=== PATIENT | male | born 1940 | race Caucasian/White ===

== ENCOUNTER 2023-01-22 11:25 | Emergency (ER) | payer MEDICARE, SELFPAY ==
[2023-01-22 11:43] VITALS: BP 141/84; PULSE 84; RESP 22; TEMP 36.2; O2SAT 96; BMI 32.5
--- NOTE | 2023-01-22 11:53 | CRLHL7_ITS ---
For Patients: As a result of the Cures Act, medical imaging exams and procedure reports are released immediately into your electronic medical record. You may view this report before your referring provider. If you have questions, please contact your health care provider. INDICATION: Cough. COMPARISON: Chest x-ray dated 28 December 2021. FINDINGS: PA and lateral chest x-rays show a normal cardiac silhouette. The lungs show no focal pulmonary opacities. Sharp pleural margins. No pneumothorax. IMPRESSION: No evidence of acute pulmonary abnormalities. Dictated by Albert Estrada MD @ 01/22/2023 12:50:18 PM Dictated by: Albert Estrada MD @ 01/22/2023 12:50:28 (Electronically Signed)
--- NOTE | 2023-01-22 12:12 | ED_ITS ---
HPI - General Adult General Chief complaint: Cough Stated complaint: congestion, headache, cough Time Seen by Provider: 01/22/23 11:48 Source: patient Mode of arrival: ambulatory Limitations: no limitations History of Present Illness HPI narrative: 82-year-old male coming in today complaining of not feeling well since Tuesday, so today going on day 5. He complains of a cough and decreased appetite. had similar symptoms last week and she is improved. He states that he has no chest pain, cough is not productive, no fevers, no abdominal discomfort or headache, no skin rashes. He denies weakness. He is more fatigued than usual. He denies tobacco use, history of asthma or COPD. Related Data Home Medications Medication Instructions Recorded Confirmed allopurinol 100 mg tablet 200 mg PO DAILY 07/21/22 09/29/22 omeprazole 20 mg tablet,delayed mg PO BID 07/21/22 09/29/22 release Previous Rx's Medication Instructions Recorded celecoxib 200 mg capsule 200 mg PO QDAY #10 caps 07/21/22 colchicine 0.6 mg tablet 0.6 mg PO QDAY #6 tabs 07/21/22 warfarin 4 mg tablet 4 mg PO QDAY #100 tabs 07/21/22 alprazolam 0.5 mg tablet 0.5 mg PO .Bedtime as needed PRN 09/30/22 sleep #60 tabs citalopram 20 mg tablet See Rx Instructions .Route 11/12/22 .COMPLEX #90 tabs diltiazem HCl 120 mg See Rx Instructions .Route 11/12/22 capsule,extended release 24 hr .COMPLEX #90 caps lisinopril 20 mg tablet See Rx Instructions .Route 11/12/22 .COMPLEX #90 tabs pravastatin 40 mg tablet See Rx Instructions .Route 12/26/22 .COMPLEX #90 tabs tadalafil 5 mg tablet See Rx Instructions .Route 01/21/23 .COMPLEX #90 tabs Allergies Allergy/AdvReac Type Severity Reaction Status Date / Time No Known Allergies Allergy Unknown Unknown Uncoded 09/29/22 09:43 Review of Systems Status of ROS: Reports: 10 or more systems reviewed and unremarkable except as noted in History and below [facility] Medical History Basal cell carcinoma of skin (01/19/10) Phlebitis of superficial vein Surgical History History of blepharoplasty Status post cataract extraction Status post cholecystectomy Status post repair of hydrocele Social History Smoking Status: Never smoker Do you use any of these nicotine containing products: None Second hand tobacco smoke exposure: No How often do you have a drink containing alcohol: never AUDIT-C Alcohol total score: 0 Non-prescribed substance use: denies use Exam Narrative: Exam Narrative: Well-nourished well-developed patient in no acute distress. Alert and oriented. Answers questions appropriately. Mood and affect are appropriate. Thoughts are goal oriented and rational. No tangential or magical thinking noted. Patient speaks in full sentences without needing to catch his breath. He does sound slightly congested. HEENT: Normocephalic atraumatic. Pupils are equally round reactive to light. Extraocular muscles are intact. Conjunctivae are moist without any icterus noted. Moist mucous membranes. Posterior pharynx is normal. Neck is soft without any lymphadenopathy or thyromegaly. No masses are appreciated. Cardiovascular: Heart is regular rate and rhythm S1 and S2 are present without any murmurs. Lungs: Clear to auscultation bilaterally no wheezes rhonchi or rales are appreciated. Patient takes deep breaths without any discomfort. Skin: Warm dry and intact. Const: Vital Signs, click to edit/add: Vital Signs - 24 hr 01/22/23 11:43 Temperature 97.2 F L Pulse Rate [Right Pulse Oximeter] 84 Respiratory Rate 22 Blood Pressure [Ri ght Upper Arm] 141/84 H Pulse Oximetry 96 Oxygen Delivery Me thod Room Air Course Course Hospital Course: COVID, influenza, RSV swab was done: Patient is positive for RSV. Chest x-ray was done, , read by me, showed no acute pathology. Vital Signs Vital signs: Initial Vital Signs Temperature 97.2 F L 01/22/23 11:43 Temperature Source Temporal Artery Scan 01/22/23 11:43 Pulse Rate 84 01/22/23 11:43 Respiratory Rate 22 01/22/23 11:43 Blood Pressure 141/84 H 01/22/23 11:43 Blood Pressure Mean 103 01/22/23 11:43 Blood Pressure Position Sitting 01/22/23 11:43 Pulse Oximetry 96 01/22/23 11:43 Oxygen Delivery Method 01/22/23 11:43 Vital Signs Temperature 97.2 F L 01/22/23 11:43 Pulse Rate 84 01/22/23 11:43 Respiratory Rate 22 01/22/23 11:43 Blood Pressure 141/84 H 01/22/23 11:43 Pulse Oximetry 96 01/22/23 11:43 Oxygen Delivery Method 01/22/23 11:43 Temperature 97.2 F L 01/22/23 11:43 Pulse Rate 84 01/22/23 11:43 Respiratory Rate 22 01/22/23 11:43 Blood Pressure 141/84 H 01/22/23 11:43 Pulse Oximetry 96 01/22/23 11:43 Oxygen Delivery Method 01/22/23 11:43 Medical Decision Making MDM Narrative Medical decision making narrative: 82-year-old male with RSV. No evidence of hypoxia. Will treat symptomatically. We discussed reasons for follow-up. Patient was agreeable and had no other questions. Lab Data Lab results reviewed: Yes I reviewed the patient's lab results Labs: Lab Results 01/22/23 Range/Units 12:19 SARS-CoV-2 (PCR) Negative SARS-CoV-2 (Negative) Influenza Type A (PCR) Negative PCR FLU A (Negative) Influenza Type B (PCR) Negative PCR FLU B (Negative) RSV (PCR) POSITIVE PCR RSV A (Negative) Imaging Data Chest x-ray: Attestation: I have reviewed the pertinent imaging results. Radiologist's impression: INDICATION: Cough. COMPARISON: Chest x-ray dated 28 December 2021. FINDINGS: PA and lateral chest x-rays show a normal cardiac silhouette. The lungs show no focal pulmonary opacities. Sharp pleural margins. No pneumothorax. IMPRESSION: No evidence of acute pulmonary abnormalities. Discharge Plan Discharge Clinical Impression: Respiratory syncytial virus (RSV) Patient Disposition: Home, Self-Care Condition: Stable Additional Instructions: Rest as much as you need to. Stay well hydrated. Return to the ER if you feel like you are getting worse instead of better. Prescriptions: No Action omeprazole 20 mg tablet,delayed release (DR/EC) PO BID allopurinol 100 mg tablet 200 mg PO DAILY celecoxib 200 mg capsule 200 mg PO QDAY Qty: 10 2RF colchicine 0.6 mg tablet 0.6 mg PO QDAY Qty: 6 3RF warfarin 4 mg tablet 4 mg PO QDAY Qty: 100 5RF Rx Instructions: Take 1 tab daily. alprazolam 0.5 mg tablet 0.5 mg PO .Bedtime as needed PRN (Reason: sleep) Qty: 60 1RF lisinopril 20 mg tablet See Rx Instructions .ROUTE .COMPLEX Qty: 90 3RF Dose Instruction: TAKE 1 TABLET BY MOUTH DAILY Rx Instructions: TAKE 1 TABLET BY MOUTH DAILY diltiazem HCl 120 mg capsule,extended release 24hr See Rx Instructions .ROUTE .COMPLEX Qty: 90 3RF Dose Instruction: TAKE 1 CAPSULE BY MOUTH ONCE DAILY Rx Instructions: TAKE 1 CAPSULE BY MOUTH ONCE DAILY citalopram 20 mg tablet See Rx Instructions .ROUTE .COMPLEX Qty: 90 3RF Dose Instruction: TAKE 1/2 TABLET BY MOUTH TWICE DAILY Rx Instructions: TAKE 1/2 TABLET BY MOUTH TWICE DAILY pravastatin 40 mg tablet See Rx Instructions .ROUTE .COMPLEX Qty: 90 3RF Dose Instruction: TAKE 1 TABLET BY MOUTH AT BEDTIME Rx Instructions: TAKE 1 TABLET BY MOUTH AT BEDTIME tadalafil 5 mg tablet See Rx Instructions .ROUTE .COMPLEX Qty: 90 3RF Dose Instruction: TAKE ONE TABLET BY MOUTH EVERY DAY NEEDED Rx Instructions: TAKE ONE TABLET BY MOUTH EVERY DAY NEEDED Follow Up/Referrals: Wili Zayas MD [Primary Care Provider] - Stand Alone Forms: [employer] Info Instructions
[2023-01-22 13:20] LABS: PCR FLU A Negative PCR FLU A (Negative); PCR FLU B Negative PCR FLU B (Negative); PCR RSV POSITIVE PCR RSV (Negative)
[2023-01-22 13:27] LABS: SARS PCR* Negative SARS-CoV-2 (Negative)
== END 2023-01-22 13:50 | disposition home or self-care (01) ==
PROVIDERS: Emergency Provider Family Medicine; PCP Family Medicine
DX: J06.9 Acute upper respiratory infection, unspecified (principal); B97.4 Respiratory syncytial virus as the cause of diseases classified elsewhere
CPT/HCPCS: 71046; 87502; 87634; 87635; 99284

== ENCOUNTER 2023-11-24 09:30 | Outpatient (RCR) | payer MEDICARE, SELFPAY ==
--- NOTE | 2023-10-11 17:00 | PT.OPE ---
[facility] [place] Outpatient Eval PT [facility] Outpatient Eval Start: 10/11/23 12:38 Freq: Status: Active Protocol: Document 10/11/23 12:38 ENM (Rec: 10/11/23 16:33 ENM [id number]) E-signed By Hollie Mcintyre, DPT Physical Therapy Outpatient Evaluation Insurance Information Recert Due Date 01/03/24 Insurance Name Medicare B Medical Diagnosis cervicalgia Treating Diagnosis neck pain, right arm pain, decreased cervical ROM, right shoulder pain, impaired posture, Referring MD [place] Subjective Subjective Patient presents to PT with complaint of neck pain that started two weeks ago. The pain is on the right side of their neck which will go down into the shoulder blade. Today he is having more discomfort into his right shoulder on the outside. Will also have a pain in his hand that will go down into his first finger. He had a numbness in the side of his neck but will also feel some numbness when holding a book in his hand for a period of time. The numbness have been coming and going for the past year. He reports also having a stiff neck especially when looking to his left. He states that he had a procedure at [facility] years ago that burned his nerves which helped with his neck pains in the past. 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 XRAY: : Alignment is normal. No fractures or significant bone lesions. Joints: Moderate degenerative disc space narrowing in the mid to lower cervical spine. Moderate diffuse facet joint spondylosis. No other specific finding to explain pain. 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 Hypomobile without pain throughout thoracic spine + for pain palpation of suboccipital and along rhomboids at T5 level special tests spurlings gapping + spurling compression + for SB and SB with ext Posture: forward head and increased thoracic kyphosis Functional Test Performed & Score NDI: 8/50 16% mild disability Assessment Assessment/Impression Patient is an 82 year old male presenting with right sided neck and arm pains. Their primary complaint is of pain through the neck and into the arm with daily activities. Pains have consistently been present in the right side of the neck for 2 weeks now but he has noticed right arm and shoulder pain that seems to be related which started a year ago. Upon assessment patients concordant pains brought on right cervical SB, right cervical rotation, active shoulder abduction, spurlings testing, PAs at C2/3 and C6/7 as well as palpation along T5. Patient has significant stiffness with CPA and PAs throughout cervical and thoracic spine. As well as significant limitations into cervical extension, R SB and bilateral rotation. Notable shoulder weakness present with abduction and external rotation. He responds positively to manual therapy of the neck focusing on opening techniques. Postural impairments likely contributing to symptoms include forward head posture and increased thoracic kyphosis. Jaime would greatly benefit from skilled PT to address impairments stated above in order to perform all work duties and recreational activities without significant discomfort or difficulty. Primary Functional Limitations discomfort with all mobility throughout the day Plan of Care Rehabilitation Potential Good Physical Therapy Goals In 6-8 visits: 1. Patient will be IND with HEP and self management of symptoms 2. Patient will be able to make it through the work day with 3/10 or less neck pain after for improved work tolerance 3. Patient will display a pain free improvement in cervical rotation by 5 deg for increased ROM for driving 4. Patient will be able to hold his book without any numbness or arm pain during or after 5. Patient will improve NDI from 16% to 6% (MDC 10%) to demonstrate improvements in QOL Coordination/Communication With Referral Source Treatment Plan/Direct Interventions Compression Garments,Heat,Ice/ Cold/Vasopneumatic,Joint Mobilization,Manual Therapy, Neuromuscular Re-ed,Self-Care/ Home Management,Therapeutic Activities,Therapeutic Exercises,Traction (Mechanical ) Frequency/Duration 1x a week for 6 weeks, as needed for 2-3 visits Patient Will Be Discharged From Therapy Completion of LTG(s), Independent w/HEP Evaluation Billing Untimed Code Treatment Minutes 33 Complexity Moderate Certification Information Initial Certification Date 10/11/23 Ending Certification Date 01/03/24 Provider Signature Shows Agreement With POC & Medical Necessity Physician Signature & Date Requested Please Sign/Date Here Physician Comment/Change : Physician NPI Number #
== END 2023-12-02 09:54 | disposition home or self-care (01) ==
PROVIDERS: PCP Family Medicine; Visit Provider Family Medicine
DX: M54.2 Cervicalgia (principal); M79.601 Pain in right arm; Z74.09 Other reduced mobility; M25.511 Pain in right shoulder; R29.3 Abnormal posture; Z51.89 Encounter for other specified aftercare
CPT/HCPCS: 97012; 97110; 97140; 97162; 97530

== ENCOUNTER 2024-02-08 09:56 | Outpatient (CLI) | payer MEDICARE, SELFPAY | END 2024-02-08 09:57 | disposition home or self-care (01) | PROVIDERS: PCP Family Medicine; Visit Provider Family Medicine | DX: Z00.00 Encounter for general adult medical examination without abnormal findings (principal); I10 Essential (primary) hypertension; E78.5 Hyperlipidemia, unspecified; R53.83 Other fatigue; Z13.0 Encounter for screening for diseases of the blood and blood-forming organs and certain disorders involving the immune mechanism; Z13.29 Encounter for screening for other suspected endocrine disorder | CPT/HCPCS: 80048; 80061; 82607; 84443 ==

== ENCOUNTER 2025-02-25 10:19 | Outpatient (CLI) | payer MEDICARE, SELFPAY | END 2025-02-25 10:20 | disposition home or self-care (01) | PROVIDERS: PCP Family Medicine; Visit Provider Family Medicine | DX: I10 Essential (primary) hypertension (principal); E78.5 Hyperlipidemia, unspecified; R19.7 Diarrhea, unspecified | CPT/HCPCS: 80053; 80061 ==